=== PATIENT | male | born 1995 | race Caucasian/White ===

== ENCOUNTER 2022-06-30 16:47 | Emergency (ER) | payer OTHER ==
[~2022-06-30] VITALS: Ht 185.4 cm; Wt 86.4 kg
[2022-06-30 16:57] VITALS: TEMP 97.9
[2022-06-30 18:20] VITALS: BP 124/85; PULSE 86
== END 2022-06-30 18:30 | disposition home or self-care (01) ==
LOC: COL.ER 16:47
DX: R11.2 Nausea with vomiting, unspecified (principal); R19.7 Diarrhea, unspecified; F17.200 Nicotine dependence, unspecified, uncomplicated
CPT/HCPCS: J2405; J7030